=== PATIENT | male | born 1960 | race Two or more races ===

== ENCOUNTER 2021-10-23 23:55 | Emergency (ER) | payer OTHER ==
[~2021-10-23] VITALS: Ht 170.2 cm; Wt 77.1 kg
--- NOTE | 2021-10-24 00:35 | NUR ---
BIBSELF FROM WORK C/O INJURY TO RT LEFT FOOT "STACK OF STEEL TRAYS FELL ON FT" SKIN INTACT, SWELLING NOTED. 07/18 PAIN. PT A/OX4. TOLERATING R/A WELL WITH NO SOB. AMBULATORY WITH STEADY GAIT. SAFETY MEASURES IN PLACE.
--- NOTE | 2021-10-24 00:48 | NUR ---
DR. HENRRY CARRILLO AT PT'S BEDSIDE FOR EVAL
[2021-10-24] MEDS ORDERED: IBUPROFEN 600 MG TABLET PO ONE (01:00)
--- NOTE | 2021-10-24 01:01 | NUR ---
DESIGN ENGINEERING TECHNICIAN AT PT'S BEDSIDE
[2021-10-24] MEDS ORDERED: IBUPROFEN 600 MG TABLET ONE (01:13)
[2021-10-24] MEDS ORDERED: IBUP-1953 PO (01:22)
[2021-10-24] MEDS ORDERED: ACET325C7 PO (01:22)
[2021-10-24 01:31] VITALS: BP 129/61
== END 2021-10-24 01:32 | disposition home or self-care (01) ==
LOC: ER 10-24 00:09
DX: S92.321A Displaced fracture of second metatarsal bone, right foot, initial encounter for closed fracture (principal); Z98.890 Other specified postprocedural states; Z60.2 Problems related to living alone; W20.8XXA Other cause of strike by thrown, projected or falling object, initial encounter; Y93.89 Activity, other specified; Y92.89 Other specified places as the place of occurrence of the external cause; Y99.0 Civilian activity done for income or pay
CPT/HCPCS: 73630-TC